=== PATIENT | female | born 1950 | race Caucasian/White ===

== ENCOUNTER 2019-01-08 10:51 | Emergency (ER) | payer OTHER, MEDICAID ==
[~2019-01-08] VITALS: Ht 157.5 cm; Wt 62.0 kg
[2019-01-08] MEDS ORDERED: KETOROLAC 60MG/2ML VIAL IM ONE (13:00)
[2019-01-08 13:17] VITALS: BP 168/86
== END 2019-01-08 14:42 | disposition home or self-care (01) ==
LOC: ER 10:51
DX: R07.89 Other chest pain (principal); I10 Essential (primary) hypertension; V49.49XA Driver injured in collision with other motor vehicles in traffic accident, initial encounter; Y93.89 Activity, other specified; Y92.488 Other paved roadways as the place of occurrence of the external cause; Y99.8 Other external cause status
CPT/HCPCS: 71045; 96372; 99283; J1885